=== PATIENT | male | born 1950 | race Caucasian/White ===

== ENCOUNTER 2018-07-14 03:10 | Emergency (ER) | payer MEDICARE, BC ==
[2018-07-14] MEDS: Nitroglycerin 0.4 MG Tab.SL SL PRN ×2 (03:20→03:26)
[2018-07-14] MEDS ORDERED: Sodium Chloride 0.9% 1,000 ML ONE (03:33)
--- NOTE | 2018-07-14 03:34 | EDM.PDOC ---
ED HPI GENERAL MEDICAL PROBLEM - General Chief Complaint: Chest Pain Stated Complaint: chest tightness Time Seen by Provider: 07/14/18 03:15 Source of Information: Reports: Patient, Significant Other History Limitations: Reports: No Limitations - History of Present Illness INITIAL COMMENTS - FREE TEXT/NARRATIVE: Patient presents with chest tightness and feeling sweaty and clammy. This awoke him at 0130 this morning. Also a little nausea. He says it feels like when he had an ID 5 years ago. He had a stent placed in [place] at that time and has been very well since then. He carries nitro but never has needed it. He has COPD and uses Advair. He quit smoking many years ago. Denies diabetes. - Related Data Allergies Allergy/AdvReac Type Severity Reaction Status Date / Time No Known Drug Allergies Allergy Other Verified 07/14/18 03:52 Home Meds: Home Meds Aspirin 81 mg PO DAILY 11/04/17 [History] Clopidogrel [Plavix] 75 mg PO DAILY 11/04/17 [History] Fluticasone/Salmeterol [Advair 100-50] 1 puff INH BID 11/04/17 [History] Losartan [Cozaar] 100 mg PO DAILY 11/04/17 [History] Metoprolol Succinate [Toprol XL] 25 mg PO DAILY 11/04/17 [History] Nitroglycerin [Nitrostat] 0.4 mg SL ASDIRECTED 11/04/17 [History] Triamterene/Hydrochlorothiazid [Maxzide 75 mg-50 mg Tablet] 1 tab PO DAILY 11/04 [History] atorvaSTATin [Lipitor] 20 mg PO DAILY 11/04/17 [History] Cetirizine [ZyrTEC] 10 mg PO DAILY 07/14/18 [History] Past Medical History Cardiovascular History: Reports: Heart Failure, ID Respiratory History: Reports: SOB Musculoskeletal History: Reports: Back Pain, Chronic, Other (See Below) Other Musculoskeletal History: hip replacement - Past Surgical History HEENT Surgical History: Reports: Tonsillectomy Cardiovascular Surgical History: Reports: None, Coronary Artery Stent Respiratory Surgical History: Reports: None Musculoskeletal Surgical History: Reports: Hip Replacement Social & Family History - Caffeine Use Caffeine Use: Reports: Coffee, Soda ED ROS GENERAL - Review of Systems Review Of Systems: See Below Constitutional: Reports: Diaphoresis. Denies: Fever, Weakness HEENT: Denies: Throat Pain Respiratory: Reports: Shortness of Breath. Denies: Cough Cardiovascular: Reports: Chest Pain. Denies: Lightheadedness, Syncope GI/Abdominal: Reports: Nausea. Denies: Abdominal Pain, Constipation, Diarrhea, Vomiting : Reports: No Symptoms Musculoskeletal: Denies: Neck Pain, Shoulder Pain, Arm Pain, Back Pain, Hand Pain Skin: Denies: Cyanosis, Jaundice, Mottled, Pallor, Diaphoresis Neurological: Denies: Confusion, Dizziness, Headache, Seizure, Syncope, Difficulty Walking, Weakness, Change in Speech Psychiatric: Denies: Agitation, Confusion ED EXAM, GENERAL - Physical Exam Exam: See Below Exam Limited By: No Limitations General Appearance: Alert, WD/WN, No Apparent Distress Eye Exam: Bilateral Eye: EOMI, Normal Inspection, PERRL Ears: Normal External Exam, Hearing Grossly Normal Nose: Normal Inspection, No Blood Throat/Mouth: Normal Inspection, Normal Lips, Normal Voice, No Airway Compromise Head: Atraumatic, Normocephalic Neck: Normal Inspection, Supple, Non-Tender, Full Range of Motion. No: Carotid Bruit Respiratory/Chest: No Respiratory Distress, Lungs Clear, Normal Breath Sounds, No Accessory Muscle Use, Chest Non-Tender Cardiovascular: Normal Peripheral Pulses, Regular Rate, Rhythm, No Edema, No Gallop, No JVD, No Murmur, No Rub Peripheral Pulses: 2+: Carotid (L), Carotid (R), Radial (L), Radial (R), Posterior Tibial (L), Posterior Tibial (R) GI/Abdominal: Normal Bowel Sounds, Soft, Non-Tender, No Organomegaly, No Distention, No Abnormal Bruit, No Mass Back Exam: Normal Inspection, Full Range of Motion Extremities: Normal Inspection, Normal Range of Motion, Non-Tender, No Pedal Edema Neurological: Alert, Oriented, Normal Cognition, No Motor/Sensory Deficits Psychiatric: Normal Affect, Normal Mood Skin Exam: Warm, Dry, Intact, Normal Color, No Rash Course - Vital Signs Last Recorded V/S: Last Vital Signs Temp 98 F 07/14/18 03:20 Pulse 62 07/14/18 04:18 Resp 14 07/14/18 04:18 BP 108/51 L 07/14/18 04:18 Pulse Ox 99 07/14/18 04:18 - Orders/Labs/Meds Orders: Active Orders 24 hr Category Date Time Status EKG Documentation Completion [RC] ASDIRECTED Care 07/14/18 03:30 Ordered CXR [Chest 1V Frontal] [CR] Stat Exams 07/14/18 03:43 Ordered D5 1/2 NS w/ 40 mEq/L KCl 1,000 ml Med 07/14/18 04:45 Ordered IV ASDIRECTED Nitroglycerin [Nitrostat] Med 07/14/18 03:27 Active 0.4 mg SL Q5M PRN EKG 12 Lead [EK] Routine Ther 07/14/18 03:29 Ordered Medication Orders Potassium Chloride/Dextrose/Sod Cl (D5 1/2 Ns W/ 40 Meq/L Kcl) 1,000 mls @ 1, 000 mls/hr IV ASDIRECTED ARSEN Last Admin: 07/14/18 05:00 Dose: 1,000 mls/hr Nitroglycerin (Nitrostat) 0.4 mg SL Q5M PRN PRN Reason: Chest Pain Last Admin: 07/14/18 03:26 Dose: 0.4 mg Admin: 07/14/18 03:20 Dose: 0.4 mg Labs: Laboratory Tests 07/14/18 07/14/18 Range/Units 03:37 03:37 WBC 7.47 (5.00-10.00) 10^3/uL RBC 4.43 L (4.50-6.00) 10^6/uL Hgb 14.1 (13.0-17.0) g/dL Hct 38.2 L (40.0-52.0) % MCV 86.2 (82.0-92.0) fL MCH 31.8 H (27.0-31.0) pg MCHC 36.9 H (32.0-36.0) g/dL RDW 12.1 (11.5-14.5) % Plt Count 192 (150-400) 10^3/uL MPV 9.4 (7.4-10.4) fL Immature Gran % (Auto) 0.3 (0.0-5.0) % Neut % (Auto) 58.5 (50.0-70.0) % Lymph % (Auto) 24.8 (20.0-40.0) % [place] % (Auto) 8.3 H (2.0-8.0) % Eos % (Auto) 7.8 H (1.0-3.0) % Baso % (Auto) 0.3 (0.0-1.0) % Immature Gran # (Auto) 0.02 (0.00-0.50) 10^3/uL Neut # (Auto) 4.38 (2.50-7.00) 10^3/uL Lymph # (Auto) 1.85 (1.00-4.00) 10^3/uL [place] # (Auto) 0.62 (0.10-0.80) 10^3/uL Eos # (Auto) 0.58 H (0.10-0.30) 10^3/uL Baso # (Auto) 0.02 (0.00-0.10) 10^3/uL Sodium 137 (136-145) mmol/L Potassium 2.9 L (3.3-5.3) mmol/L Chloride 94 L (98-115) mmol/L Carbon Dioxide 26.0 (21.0-32.0) mmol/L Anion Gap 19.9 H (5-15) mmol/L BUN 16 (6-25) mg/dL Creatinine 1.14 (0.51-1.17) mg/dL Est Cr Clr Drug Dosing 64.92 mL/min Estimated GFR (MDRD) > 60 mL/min Glucose 104 H (75 - 99) mg/dL Calcium 8.4 L (8.7-10.3) mg/dL Troponin I 0.07 (0.00-0.070) ng/mL Meds: Medications Generic Name Dose Route Start Last Admin Trade Name Freq PRN Reason Stop Dose Admin Potassium Chloride/Dextrose/Sod Cl 1,000 mls @ 1,000 mls/hr 07/14/18 04:45 05:00 D5 1/2 Ns W/ 40 Meq/L Kcl IV 1,000 mls/hr ASDIRECTED ARSEN Administration Nitroglycerin 0.4 mg 07/14/18 03:27 07/14/18 03:26 Nitrostat SL 0.4 mg Q5M PRN Administration Chest Pain Discontinued Medications Generic Name Dose Route Start Last Admin Trade Name Freq PRN Reason Stop Dose Admin Sodium Chloride Confirm 07/14/18 03:33 Normal Saline Administered 07/14/18 03:34 Dose 1,000 mls @ as directed .ROUTE .STK-MED ONE Ondansetron HCl 4 mg 07/14/18 03:42 07/14/18 03:43 Zofran IVPUSH 07/14/18 03:43 4 mg ONETIME ONE Administration Ondansetron HCl Confirm 07/14/18 03:42 Zofran Administered 07/14/18 03:43 Dose 4 mg .ROUTE .STK-MED ONE - Re-Assessments/Exams Free Text/Narrative Re-Assessment/Exam: 07/14/18 03:52 EKg shows no STEMI and is unchanged from 10-30-17. He had ASA 81 x 4 from EMS but no nitro. We gave nitro 0.4 mg and started IV fluid bolus. After 5 minutes there was no improvement in chest tightness so another nitro was given. This resolved the chest tightness and also dropped blood pressure significantly: 70/50. We are pushing fluids and BP responded, now 110/69. Labs are running. 07/14/18 04:41 Troponin is 0.07, potassium is 2.9 and other labs okay. Will give KCl. I am waiting manager employee relations [facility] here. Patient would prefer to stay here if okay but with his symptoms being just like they were leading up to his ID in 2011 and responding to nitro I am suspicious he needs an angiogram. Pt is okay with this. 07/14/18 05:[address] Garth Moore who accepted for transfer. Patient and his agreeable with this. 07/14/18 05:16 Patient stable throughout ER course. No return of chest pain. Departure - Departure Time of Disposition: 05:03 Disposition: DC/Tfer to Acute Hospital 02 Reason for Transfer *Q: Other (observation and elective angiogram likely) Condition: Good Clinical Impression: ACS (acute coronary syndrome), Unstable angina, Hypokalemia Forms: ED Department Discharge - My Orders Last 24 Hours: My Active Orders 07/14/18 03:27 Nitroglycerin [Nitrostat] 0.4 mg SL Q5M PRN 07/14/18 03:29 EKG 12 Lead [EK] Routine 07/14/18 03:30 EKG Documentation Completion [RC] ASDIRECTED 07/14/18 03:43 CXR [Chest 1V Frontal] [CR] Stat 07/14/18 04:45 D5 1/2 NS w/ 40 mEq/L KCl 1,000 ml IV ASDIRECTED - Assessment/Plan Last 24 Hours: My Active Orders 07/14/18 03:27 Nitroglycerin [Nitrostat] 0.4 mg SL Q5M PRN 07/14/18 03:29 EKG 12 Lead [EK] Routine 07/14/18 03:30 EKG Documentation Completion [RC] ASDIRECTED 07/14/18 03:43 CXR [Chest 1V Frontal] [CR] Stat 07/14/18 04:45 D5 1/2 NS w/ 40 mEq/L KCl 1,000 ml IV ASDIRECTED
[2018-07-14] MEDS ORDERED: Sodium Chloride 0.9% 1,000 ML IV ONE (03:35)
[2018-07-14] MEDS ORDERED: Ondansetron 4 MG/2 ML SDV IVPUSH ONE (03:42)
[2018-07-14] MEDS ORDERED: Ondansetron 4 MG/2 ML SDV ONE (03:42)
[2018-07-14 04:13] LABS: ANION GAP 19.9 mmol/L (5-15); CHLORIDE,CL 94 mmol/L (98-115); SODIUM,NA 137 mmol/L (136-145)
[2018-07-14] MEDS ORDERED: D5 1/2 NS w/ 40 mEq/L KCl 1,000 ML IV SCH (04:45)
--- NOTE | 2018-07-14 08:01 | CR ---
[id number] RAD/RAD Chest PA or AP 1V EXAM: FRONTAL CHEST INDICATION: Chest pain. COMPARISON: March 08, 2012. DISCUSSION: Hyperinflation and central perihilar bronchial wall thickening could relate to underlying chronic obstructive pulmonary disease. No acute infiltrates are identified. Normal heart size. IMPRESSION: 1. No acute findings. Jaden Cristobal MD 07/14/18 0800 Thank you for allowing us to participate in the care of your patient.
== END 2018-07-14 05:50 ==
LOC: KA.ED 03:10
DX: I24.9 Acute ischemic heart disease, unspecified (principal); E87.6 Hypokalemia; I25.2 Old myocardial infarction; I50.9 Heart failure, unspecified; Z79.82 Long term (current) use of aspirin; Z79.899 Other long term (current) drug therapy
CPT/HCPCS: 71045; 80048; 84484; 85025; 93005; 96361; 96374; 99284; 99285-25; A9270-GY; J2405; J3480; J7030

== ENCOUNTER 2021-11-26 14:07 | Observation (INO) | payer MEDICARE, BC ==
[2021-11-26 14:42] LABS: ANION GAP 12.8 mmol/L (5-15); CHLORIDE,CL 100 mmol/L (98-107); SODIUM,NA 141 mmol/L (136-145)
[2021-11-26 14:50] LABS: ESTIMATED GFR 94 mL/min (>=60)
[2021-11-26 15:06] LABS: RESPIRATORY SYNCYTIAL VIR NAA NEGATIVE (NEGATIVE)
[2021-11-26 15:08] LABS: CORONAVIRUS COVID-19 NAA NEGATIVE (NEGATIVE)
[2021-11-26] MEDS ORDERED: methylPREDNISolone Sodium Succinate 125 MG/2 ML SDV IVPUSH ONE (16:13)
[2021-11-26] MEDS ORDERED: Sodium Chloride 0.9% 10 ML Syringe FLUSH PRN ×2 (16:13→17:12)
[2021-11-26] MEDS ORDERED: Albuterol/Ipratropium 3.0-0.5 MG/3 ML Neb Soln NEB ONE (16:30)
[2021-11-26] MEDS ORDERED: Ondansetron 4 MG Tab.DIS PO PRN (17:12)
[2021-11-26] MEDS ORDERED: Acetaminophen 325 MG Tab PO PRN (17:12)
[2021-11-26] MEDS ORDERED: Azithromycin 250 MG Tab PO ONE (18:37)
[2021-11-26] MEDS ORDERED: Albuterol/Ipratropium 3.0-0.5 MG/3 ML Neb Soln NEB PRN (19:17)
[2021-11-26] MEDS ORDERED: Sodium Chloride 0.9% 1,000 ML IV ONE (19:59)
[2021-11-26] MEDS: Albuterol/Ipratropium 3.0-0.5 MG/3 ML Neb Soln NEB SCH (20:53)
[2021-11-26] MEDS ORDERED: ATORVASTATIN 20 MG PO SCH (21:00)
[2021-11-26] MEDS: METOPROLOL SUCCINATE 50 MG PO SCH (21:52)
[2021-11-27] MEDS: Albuterol/Ipratropium 3.0-0.5 MG/3 ML Neb Soln NEB SCH ×5 (00:59→16:28)
[2021-11-27 08:00] LABS: ANION GAP 14.6 mmol/L (5-15)
[2021-11-27] MEDS ORDERED: Omeprazole 20 MG Cap.CR PO SCH (08:30)
[2021-11-27] MEDS ORDERED: Aspirin 81 MG Tab.EC PO SCH (09:00)
[2021-11-27] MEDS ORDERED: LOSARTAN 100 MG PO SCH (09:00)
[2021-11-27] MEDS ORDERED: FEXOFENADINE 60 MG PO SCH (09:00)
[2021-11-27] MEDS ORDERED: Clopidogrel 75 MG Tab - PTOM PO SCH (09:00)
[2021-11-27] MEDS ORDERED: Cetirizine 10 MG Tab PO SCH ×2 (09:00)
[2021-11-27] MEDS ORDERED: AMLODIPINE 5 MG PO SCH (09:00)
[2021-11-27] MEDS ORDERED: SERTRALINE 50 MG PO SCH (09:00)
[2021-11-27] MEDS: METOPROLOL SUCCINATE 50 MG PO SCH (09:20)
[2021-11-27] MEDS ORDERED: Albuterol 0.083% 2.5 MG/3 ML Neb Soln NEB PRN (10:11)
[2021-11-27] MEDS ORDERED: Azithromycin 250 MG Tab PO SCH (10:14)
[2021-11-27] MEDS ORDERED: cefTRIAXone 1 GM Vial IVPUSH SCH (10:15)
[2021-11-27] MEDS ORDERED: HYDROCHLOROTHIAZIDE 12.5 MG PO SCH (10:50)
[2021-11-27] MEDS ORDERED: predniSONE 20 MG Tab PO ONE (15:35)
[2021-11-28] MEDS ORDERED: predniSONE 20 MG Tab PO ONE (10:12)
== END 2021-11-27 18:15 | disposition home or self-care (01) ==
LOC: KA.IVTHER 14:07 → KA.OC 14:07 → KA.MS 17:07 → UNDOADMOB 17:07 → KA.MS 17:12
PROVIDERS: ADMIT Nurse Practitioner Family; ATTEND Nurse Practitioner Family
DX: R09.02 Hypoxemia (principal); J44.1 Chronic obstructive pulmonary disease with (acute) exacerbation; J18.9 Pneumonia, unspecified organism; Z20.822 Contact with and (suspected) exposure to COVID-19; Z79.82 Long term (current) use of aspirin; Z79.899 Other long term (current) drug therapy; Z79.02 Long term (current) use of antithrombotics/antiplatelets
CPT/HCPCS: 0241U; 36415; 71046; 80048; 80053; 81003; 83605; 84145; 85025; 85652; 86140; 87040; 94640; 96374; 96375; A9270-GY; G0378; J0696; J2930; J3490; J7030; J7512; J7620-GY

== ENCOUNTER 2024-02-16 08:17 | Emergency (ER) | payer MEDICARE, BC ==
[2024-02-16] MEDS ORDERED: Sodium Chloride 0.9% 10 ML Syringe FLUSH PRN (08:31)
[2024-02-16] MEDS: Nitroglycerin 2% Oint 1 GM UD Packet TOP ONE (08:38)
[2024-02-16 08:41] LABS: BASOPHILS ABSOLUTE AUTO 0.04 10^3/uL (0.00-0.10); BASOPHILS PERCENT AUTO 0.6 % (0.0-1.0); EOSINOPHILS ABSOLUTE AUTO 0.77 10^3/uL (0.10-0.30); EOSINOPHILS PERCENT AUTO 11.2 % (1.0-3.0); HEMATOCRIT 41.8 % (40.0-52.0); HEMOGLOBIN 14.4 g/dL (13.0-17.0); IMMATURE GRAN ABSOLUTE AUTO 0.01 10^3/uL (0.00-0.50); IMMATURE GRAN PERCENT AUTO 0.1 % (0.0-5.0); LYMPHOCYTES ABSOLUTE AUTO 1.87 10^3/uL (1.00-4.00); LYMPHOCYTES PERCENT AUTO 27.1 % (20.0-40.0); MEAN CORPUSCULAR HEMOGLOBIN 30.9 pg (27.0-31.0); MEAN CORPUSCULAR HGB CONC 34.4 g/dL (32.0-36.0); MEAN CORPUSCULAR VOLUME 89.7 fL (82.0-92.0); MONOCYTES ABSOLUTE AUTO 0.68 10^3/uL (0.10-0.80); MONOCYTES PERCENT AUTO 9.9 % (2.0-8.0); NEUTROPHILS ABSOLUTE AUTO 3.53 10^3/uL (2.50-7.00); NEUTROPHILS PERCENT AUTO 51.1 % (50.0-70.0); PLATELET COUNT,PLT 150 10^3/uL (150-400); RED BLOOD CELL COUNT 4.66 10^6/uL (4.50-6.00); RED CELL DISTRIBUTION WIDTH 13.2 % (11.5-14.5)
[2024-02-16 08:49] VITALS: BP 152/87; PULSE 61
[2024-02-16] MEDS: Aspirin 81 MG Tab.Chew PO ONE (08:50)
[2024-02-16 09:00] LABS: ALANINE AMINOTRANSFERASE,ALT 26 U/L (14-63); ALBUMIN 4.21 g/dL (3.40-5.00); ALKALINE PHOSPHATASE 142 U/L (46-116); ANION GAP 13.6 mmol/L (5-15); ASPARTATE AMNIOTRANSFERASE,AST 26 U/L (15-37); BILIRUBIN TOTAL 0.6 mg/dL (0.2-1.0); BLOOD UREA NITROGEN,BUN 12 mg/dL (7-18); CALCIUM 8.6 mg/dL (8.7-10.3); CARBON DIOXIDE,CO2 29.3 mmol/L (21.0-32.0); CHLORIDE,CL 95 mmol/L (98-107); CREATININE 0.81 mg/dL (0.51-1.17); EST CRCL DRUG DOSING (CG) 75.56 mL/min; GLUCOSE RANDOM 111 mg/dL (70-140); POTASSIUM,K 3.9 mmol/L (3.5-5.1); PROTEIN TOTAL,TP 7.2 g/dL (6.4-8.2); SODIUM,NA 134 mmol/L (136-145)
[2024-02-16 09:01] LABS: ESTIMATED GFR 93 mL/min (>=60)
[2024-02-16] MEDS: Alum Hydrox/Mag Hydrox/Simeth 30 ML, Lidocaine 2% 15 ML PO ONE (09:41)
== END 2024-02-16 11:25 | disposition home or self-care (01) ==
LOC: KA.ED 08:17
DX: I20.9 Angina pectoris, unspecified (principal); I11.0 Hypertensive heart disease with heart failure; I50.9 Heart failure, unspecified; E78.00 Pure hypercholesterolemia, unspecified; K21.9 Gastro-esophageal reflux disease without esophagitis; Z79.82 Long term (current) use of aspirin; Z79.899 Other long term (current) drug therapy
CPT/HCPCS: 36415; 71045; 80053; 84484; 85025; 93010; 99284; 99285; A9270-GY